=== PATIENT | female | born 1955 | race Caucasian/White ===

== ENCOUNTER → 2020-04-26 | Outpatient (CLI) | payer OTHER ==
[~2020-04-26] MED LIST: ASCO100019 PO; CETI-237 PO; CETI10CA PO; CIPR500T87 PO; CLIN300C9 PO; DOCU-131 PO; ESTR1PAT65 TP; FLUT9.9S NS; HYDR-3237 PO; IBUP-1222 PO; MAGN100T PO; MAGN400T36 PO; METR500T PO; MILK THISTLE PO; MV-M1TAB16 PO; NATURE-THYROID PO; ONDA4TAB10 PO; OXYC-302 PO; PROBIOTICS PO; PROG100C16 PO; SULFURZYME PO; TRAM50TA2 PO; VITA1TAB85 PO; VITA40TA PO; VITAMIN C PO; [UNRECOGNIZED DRUG - OTHER] PO
== END | disposition home or self-care (01) ==
LOC: CFH 12:42
PROVIDERS: ATTEND Homeopath
DX: N60.02 Solitary cyst of left breast (principal); N64.4 Mastodynia; N63.20 Unspecified lump in the left breast, unspecified quadrant
CPT/HCPCS: 76642; 77062; 77066; G0279